=== PATIENT | male | born 1970 | race Hispanic/Latino ===

== ENCOUNTER 2017-02-19 15:54 | Emergency (ER) | payer OTHER ==
[2017-02-19 16:07] VITALS: BP 132/81; PULSE 86; RESP 18; TEMP 99.6; O2SAT 98
--- NOTE | 2017-02-19 16:21 | ED PDOC ---
Lower Extremity Pain/Injury Time Seen by Provider: 02/19/17 16:08 Chief Complaint (Nursing): Lower Extremity Problem/Injury Chief Complaint (Provider): left foot and ankle pain History Per: Patient Additional Complaint(s): 46-year-old male presents to emergency department with left foot and ankle pain status post twisting injury at work about 2 hours prior to arrival. Patient unable to bear weight without severe pain. Patient took his usual oxycodone 15 mg tablet earlier today which he takes daily for chronic low back pain. He rates current ankle and foot pain as a 7 out of 10. No numbness or tingling to the affected area. Past Medical History Reviewed: Historical Data, Nursing Documentation, Vital Signs Vital Signs: Last Vital Signs Temp 99.6 F 02/19/17 16:06 Pulse 86 02/19/17 16:06 Resp 18 02/19/17 16:06 BP 132/81 02/19/17 16:06 Pulse Ox 98 02/19/17 16:06 - Medical History PMH: Back Problems, Diabetes - Surgical History Other surgeries: repair of varicocele - Family History Family History: States: No Known Family Hx - Living Arrangements Living Arrangements: With Family - Social History Current smoker - smoking cessation education provided: Yes Alcohol: None Drugs: Denies - Immunization History Hx Tetanus Toxoid Vaccination: (UTD) - Home Medications Home Medications: Ambulatory Orders Medication Instructions Recorded Naproxen [Naprosyn] 500 mg PO Q12 PRN #14 tablet 10/07/16 Ibuprofen [Motrin Tab] 800 mg PO Q8 PRN #20 tab 02/19/17 - Allergies Allergies/Adverse Reactions: Allergies Allergy/AdvReac Type Severity Reaction Status Date / Time No Known Allergies Allergy Verified 10/07/16 12:21 Wells Criteria for PE - Wells Criteria for Pulmonary Embolism Clinical Signs and Symptoms of DVT: No P.E is #1 Diagnosis, or Equally Likely: No Heart Rate >100: No Immobilization at least 3 days;Surgery previous 4 weeks: No Previous, objectively diagnosed PE or DVT: No Hemoptysis: No Malignancy w/treatment within 6 months, or palliative: No Total Score: 0 Review of Systems ROS Statement: Except As Marked, All Systems Reviewed And Found Negative Musculoskeletal: Positive for: Other (left foot and ankle injury) Physical Exam - Reviewed Nursing Documentation Reviewed: Yes Vital Signs Reviewed: Yes - Physical Exam Appears: Positive for: Well, Non-toxic, No Acute Distress Skin: Negative for: Rash Eye Exam: Positive for: Normal appearance Extremity: Positive for: Other (Moderate swelling and tenderness with ecchymosis noted to left foot and ankle region with decreased range of motion, palpable DP pulse, normal capillary refill, swelling or tenderness, full range of motion left knee and) Neurologic/Psych: Positive for: Alert, Oriented - ECG O2 Sat by Pulse Oximetry: 98 Pulse Ox Interpretation: Normal - Other Rad Left foot and ankle x-ray X-Ray: Interpreted by Me, Viewed By Me X-Ray Interpretation: nondisplaced distl tibia fracture Medical Decision Making Medical Decision Makin46 year old with left foot and ankle injury Plan: PO motrin for pain X-ray left foot and ankle 5:10 pm: podiatry at bedside to see patient. CT left foot and ankle ordered as per resident as per Dr. Brewster 7:51 pm: CT left lower extremity IMPRESSION: 1. Acute, nondisplaced fracture of the medial malleolus. 2. Moderate soft tissue swelling along the medial aspect of the ankle. 8:05 pm: Podiatry resident at bedside applied splint to affected extremity. Patient given crutches. Patient was instructed to follow up this coming with Dr. Brewster in his office. Disposition - Clinical Impression Clinical Impression: Ankle fracture - Patient ED Disposition Is Patient to be Admitted: No Counseled Patient/Family Regarding: Studies Performed, Diagnosis, Need For Followup, Rx Given - Disposition Referrals: Ernst Brewster DPM [Staff Provider] - Disposition: Routine/Home Disposition Time: 20:13 Condition: STABLE Additional Instructions: Ice, rest and elevate affected area. Keep splint in place at all times, do not remove splint to get splint wet. Continue with your current pain medications and to take daily and take prescription meds as well. Call Dr. Brewster's office tomorrow morning to arrange for follow-up visit this coming . Prescriptions: Ibuprofen [Motrin Tab] 800 mg PO Q8 PRN #20 tab PRN Reason: Pain, Moderate (4-7) Instructions: Ankle Fracture (ED), Crutch Instructions (ED), Splint Care (ED) Forms: [facility] ED School/Work Excuse
--- NOTE | 2017-02-19 17:29 | RAD ---
PROCEDURE: Left Ankle Radiographs. HISTORY: trauma COMPARISON: None FINDINGS: BONES: There is an acute nondisplaced fracture in the medial malleolus. JOINTS: Normal. No osteoarthritis. Ankle mortise maintained. Talar dome intact SOFT TISSUES: There is moderate medial soft tissue swelling. OTHER FINDINGS: None. IMPRESSION: Acute nondisplaced fracture in the medial malleolus and moderate medial soft tissue swelling.
--- NOTE | 2017-02-19 17:30 | RAD ---
PROCEDURE: Left Foot Radiographs. HISTORY: Trauma COMPARISON: None. FINDINGS: BONES: Bone alignment and mineralization are normal. There is no acute fracture or bone destruction JOINTS: Normal. SOFT TISSUES: Normal. OTHER FINDINGS: None. IMPRESSION: No acute fracture or dislocation.
--- NOTE | 2017-02-19 17:52 | CP.PCM.CON ---
History of Present Illness - History of Present Illness History of Present Illness: 46 year old male patient seen in ED holding complaining of left lower extremity pain. Patient states that he tripped and fell over a gas can at work approximately 2 hours ago. Patient works for [employer]. Patient states he was brought to the ED for work, and admits that he is unable to ambulate at this time due to severe pain. Patient rates the pain 10/10 on the pain scale. Patient admits to taking 15 mg of oxycodone daily for chronic back pain, last taken at 10AM. Patient states he took OTC pain medications to alleviate pain from this injury. Patient denies N/V/F/D/C/SOB/CP. No other pedal complaints at this time. PMHx: NIDDM, HTN, HLD PSH: Repair of varicocele FH: non-contributory SH: 1 pack per day smoker Meds: Metformin, Nexium, Simvistatin, Oxycodone 15 mg, unknown HTN med All: NKDA ROS: negative except as per HPI Past Patient History - Past Social History Alcohol: None Drugs: Denies - ENDOCRINE/METABOLIC Hx Diabetes Mellitus Type 2: Yes - PSYCHIATRIC Hx Substance Use: No - SURGICAL HISTORY Hx Surgeries: Yes Other/Comment: "varicocele" - ANESTHESIA Hx Anesthesia: Yes Hx Anesthesia Reactions: No Meds Home Medications: Home Medication List Medication Instructions Recorded Confirmed Type Ibuprofen [Motrin Tab] 800 mg PO Q8 PRN #20 tab 02/19/17 Rx Allergies/Adverse Reactions: Allergies Allergy/AdvReac Type Severity Reaction Status Date / Time No Known Allergies Allergy Verified 10/07/16 12:21 Physical Exam - Constitutional Appears: Well, Non-toxic, No Acute Distress - Extremities Exam Additional comments: LLE focused physical exam: Vasc: DP pulse palpable 2/4. PT pulse nonpalpable due to edema and guarding. CFT <3 seconds to all digits x5. TG warm to warm. Non-pitting edema noted circumfirentially around ankle joint and dorsolateral midfoot. Neuro: Gross sensation intact. Derm: Ecchymosis noted distal to medial malleolus. No open lesions noted. Skin appears well-hydrated. Ortho: Pain on palpation to ankle joint, styloid process, dorsum of foot; pain radiates both distally and proximally. Pain upon ankle joint ROM. Pain upon active dorsiflexion and plantarflexsion. Muscle strength testing deferred due to patient's chief complaint. - Neurological Exam Neurological exam: Alert, Oriented x3 - Psychiatric Exam Psychiatric exam: Normal Affect, Normal Mood Results - Vital Signs Recent Vital Signs: Last Vital Signs Temp 99.6 F 02/19/17 16:06 Pulse 86 02/19/17 16:06 Resp 18 02/19/17 16:06 BP 132/81 02/19/17 16:06 Pulse Ox 98 02/19/17 17:31 Assessment & Plan - Assessment and Plan (Free Text) Assessment: 46 year old male PMHx: NIDDM, HTN, HLD with medial malleolus fx secondary to mechanical fall. Plan: Patient seen and evaluated at bedside in ED holding. Discussed with attending, Dr. Hong. Charts and vitals reviewed = afebrile. Left foot and ankle X-rays reviewed: - Acute nondisplaced fracture in the medial malleolus and moderate medial soft tissue swelling. - No acute fracture or dislocation in left foot. LLE CT ordered to assess foot and ankle trauma - Acute nondisplaced fracture in medial malleolus - No acute fracture of calcaneus LLE dressed with Estrada dressing + posterior splint. Patient is to be NWB with crutches. Advised patient to keep dressing clean, dry, and intact until his appointment with Dr. Hong. Advised patient to ice and elevate LLE. Patient crutch trained; crutches dispensed to patient. Patient is to follow up with Dr. Hong in his office this , 02/21/17. Stable from podiatry standpoint. Thank you for this consult, please reconsult podiatry again as needed. - Date & Time Date: 02/19/17 Time: 20:45
--- NOTE | 2017-02-20 10:45 | CT ---
PROCEDURE: CT left ankle HISTORY: trauma, assess foot and ankle for poss fracture COMPARISON: Not available TECHNIQUE: 2.5 mm contiguous axial sections were acquired through the left ankle. Sagittal and coronal images were reformatted from the axial scan. Total exam DLP: 293.08 mGy-cm FINDINGS: There is a nondisplaced oblique fracture of the medial malleolus. There is a tiny ossific density anterior to the distal fibular metaphysis. This may represent a small avulsion injury. This may also be the result of an old ununited avulsion fracture. This is seen immediately anterior to a linear lucency through the distal fibular metaphysis without associated cortical disruption. This is best demonstrated on series 601, images 81 through 83. Questionable incomplete/nondisplaced fibular fracture. The talar dome is smooth. The tibiotalar articulation ankle mortise appear intact. The subtalar articulations are intact. There is medial soft tissue swelling about the ankle. There is no significant lateral soft tissue swelling. IMPRESSION: Nondisplaced oblique medial malleolar fracture. Questionable tiny avulsion fracture of the distal fibular metaphysis. Questionable incomplete/nondisplaced transverse fracture of the distal fibular metaphysis.
== END 2017-02-19 21:03 | disposition home or self-care (01) ==
LOC: H.ER 15:54
DX: S82.52XA Displaced fracture of medial malleolus of left tibia, initial encounter for closed fracture (principal); X50.9XXA Other and unspecified overexertion or strenuous movements or postures, initial encounter; Y99.0 Civilian activity done for income or pay; E11.9 Type 2 diabetes mellitus without complications